=== PATIENT | male | born 2000 | race Caucasian/White ===

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

== ENCOUNTER → 2021-01-07 | Outpatient (CLI) | payer OTHER | LOC: EMI 08:02 | DX: M79.671 Pain in right foot (principal) | CPT/HCPCS: 73718 ==